=== PATIENT | female | born 1995 | race Caucasian/White ===

== ENCOUNTER 2018-08-09 12:51 | Emergency (ER) | payer SELFPAY ==
[~2018-08-09] VITALS: Ht 165.1 cm; Wt 99.5 kg
== END 2018-08-09 13:38 | disposition home or self-care (01) ==
LOC: FSED 12:51
DX: O23.11 Infections of bladder in pregnancy, first trimester (principal); F17.210 Nicotine dependence, cigarettes, uncomplicated; Z3A.01 Less than 8 weeks gestation of pregnancy; R11.2 Nausea with vomiting, unspecified
CPT/HCPCS: 81003; 81025; 99283